=== PATIENT | female | born 1975 | race African-American/Black ===

== ENCOUNTER 2016-09-03 12:51 | Emergency (ER) | payer OTHER ==
[~2016-09-03] VITALS: Ht 167.6 cm; Wt 117.9 kg
[~2016-09-03 12:51] MED LIST: BACTRIM DS TABL1 TA1 PO; KEFLEX500 MG PO; NO MEDICATIONS; VICODIN 5/1 TAB 5/50 PO
[2016-09-03 14:38] LABS: INFLUENZA A NEG (NEG); INFLUENZA B NEG (NEG)
== END 2016-09-03 15:13 | disposition home or self-care (01) ==
LOC: CFTX 12:51 → CED 12:51 → CFTX 15:02
DX: J06.9 Acute upper respiratory infection, unspecified (principal)
CPT/HCPCS: 87651; 87804; 99283